=== PATIENT | male | born 1965 | race Caucasian/White ===

== ENCOUNTER 2019-01-20 06:07 | Day surgery (SDC) | payer OTHER ==
[2019-01-20] MEDS ORDERED: PROPOFOL 60 ML (07:45)
[2019-01-20] MEDS ORDERED: PROPOFOL 200 MG INJ (07:45)
[2019-01-20] MEDS ORDERED: LIDOCAINE 2% (SDV) 5 ML INJ (07:45)
== END 2019-01-20 14:27 | disposition home or self-care (01) ==
LOC: GIL 06:07
DX: Z12.11 Encounter for screening for malignant neoplasm of colon (principal)
CPT/HCPCS: 45378